=== PATIENT | male | born 1975 | race Caucasian/White ===

== ENCOUNTER 2022-02-24 10:55 | Emergency (ER) | payer SELFPAY ==
[~2022-02-24] VITALS: Ht 187.9 cm; Wt 79.4 kg
[~2022-02-24 10:55] MED LIST: MEDROL DOSEPAK4 MG PO
[2022-02-24] MEDS ORDERED: PREDNISONE10 MG PO (11:04)
== END 2022-02-24 11:30 | disposition home or self-care (01) ==
LOC: ED 10:55
DX: L23.9 Allergic contact dermatitis, unspecified cause (principal)

== ENCOUNTER 2022-09-19 20:43 | Emergency (ER) | payer OTHER ==
[~2022-09-19] VITALS: Ht 187.9 cm; Wt 81.6 kg
[~2022-09-19 20:43] MED LIST changes: +PREDNISONE10 MG PO
== END 2022-09-19 21:00 | disposition left against medical advice (07) ==
LOC: ED 20:43
DX: T50.901A Poisoning by unspecified drugs, medicaments and biological substances, accidental (unintentional), initial encounter (principal); R40.4 Transient alteration of awareness; Y92.89 Other specified places as the place of occurrence of the external cause